=== PATIENT | male | born 2000 | race Caucasian/White ===

== ENCOUNTER 2024-06-19 18:36 | Emergency (ER) | payer OTHER, SELFPAY ==
[2024-06-19] VITALS (11 sets, daily range): BP systolic 109–140; BP diastolic 65–93; PULSE 68–111; RESP 14–19; TEMP 36.3; O2SAT 96–99; BMI 25.0
--- NOTE | 2024-06-19 18:59 | EKG_ITS ---
[address] [address] Test Date: 2024-06-19 Pat Name: Harish Gloria Department: [facility] Room: Gender: Male Trim Operator: SOHAM : 2000 Requested By: Order Number: [id number] Reading MD: Nathanael Rose MD Measurements Intervals Baker Rate: 68 P: 27 SD: 138 QRS: 66 QRSD: 112 T: 57 QT: 402 QTc: 427 Interpretive Statements Normal sinus rhythm Incomplete right bundle branch block NO PRIOR TRACING Electronically Signed On 06-20-2024 6:42:40 PDT by Nathanael Rose MD
--- NOTE | 2024-06-19 18:59 | DI.RAD.S_ITS ---
PROCEDURE: XR CHEST 1V INDICATIONS: Shortness of breath TECHNIQUE: One view of the chest was acquired. COMPARISON: None. FINDINGS: Surgical changes and devices: None. Lungs and pleura: Lungs are clear. Mildly low lung volumes bilaterally. No pleural effusions or pneumothorax. Mediastinum: Mediastinal contours appear normal. Heart size is normal. Bones and chest wall: No suspicious bony lesions. Overlying soft tissues appear unremarkable. IMPRESSION: No acute cardiopulmonary abnormality is seen. Approved by: Alexandr Ambrosio M.D. on 06/19/2024 at 19:37
[2024-06-19 19:16] LABS: Add Manual Diff / Slide Review NO; Basophils Absolute Auto 100 /uL (0-100); Basophils Percent Auto 1.5 % (0-2); Eosinophils Absolute Auto 200 /uL (0-450); Eosinophils Percent Auto 2.1 % (2-4); Hematocrit 31.8 % (41-53); Hemoglobin 10.9 g/dL (13.5-17.5); Lymphocytes Absolute Auto 2200 /uL (1100-4500); Mean Corpuscular HGB Conc 34.2 % (30-36); Mean Corpuscular Hemoglobin 30.6 PG (26-34); Mean Corpuscular Volume 89.4 fL (80-100); Monocytes Absolute Auto 800 /uL (0-900); Monocytes Percent Auto 8.6 % (3-14); Neutrophils Absolute Auto 5900 /uL (1500-7000); Neutrophils Percent Auto 63.8 % (50-75); Platelet Count 544 X10^3/uL (150-400); Red Blood Cell Count 3.55 X10^6/uL (4.5-5.9); Red Cell Distribution Width 15.2 % (11.6-14.8); White Blood Cell Count 9.2 X10^3/uL (4.5-11.0)
[2024-06-19 19:22] LABS: INR 1.2 (0.9-1.3); Prothrombin Time 13.1 SECONDS (9.4-12.5)
[2024-06-19 19:27] LABS: Lactate (Lactic Acid) 1.2 mmol/L (0.7-2.1)
[2024-06-19 19:29] LABS: Alanine Aminotransferase 59 IU/L (<50); Albumin 4.3 g/dL (3.5-5.0); Albumin Globulin Ratio 1.2 (1.0-2.8); Alkaline Phosphatase 71 U/L (38-126); Aspartate Aminotransferase 76 IU/L (17-59); BUN Creatinine Ratio 14.9 (6-22); Bilirubin Total 0.5 mg/dL (0.2-1.3); Blood Urea Nitrogen 15 mg/dL (9-20); Calcium 9.6 mg/dL (8.4-10.2); Carbon Dioxide 24 mmol/L (22-32); Chloride 104 mmol/L (98-107); Estimated Glomerular Filt Rate > 60 mL/min (>60); Globulin 3.6 g/dL (1.7-4.1); Glucose 166 mg/dL (70-100); HEMOLYSIS < 15 (0-50); Sodium 139 mmol/L (137-145); Total Protein 7.9 g/dL (6.3-8.2)
[2024-06-19 19:39] LABS: NT-proBNP (BNP-Adult 18+) 76 pg/mL (<125); Troponin I < 0.012 ng/mL (0.01-0.034)
--- NOTE | 2024-06-19 21:35 | ED_ITS ---
HPI - Recheck/Abnormal Lab/Rx General Chief Complaint: Recheck/Abnormal Lab/Rx Stated Complaint: sent by [facility], chest px when breathes Time Seen by Provider: 06/19/24 19:03 History of Present Illness HPI narrative: 23-year-old male with known past medical history of alcoholic pancreatitis PE on Lovenox presenting to the emergency department due to patient being sent in by his primary care doctor. He states that he was recently seen discharge from [facility] was in the ICU for acute pancreatitis complicated with DVT he is currently on Lovenox, he did follow up and his primary care doctor wanted him to be evaluated given the fact that patient stating that he is still having some mild right-sided chest pain. Patient states he has not having any worsening symptoms states that he was discharged with this pain, however he states that he was told to come here because it was his flight doctor,/ [place] doctor. 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 He is just requesting medication here for this. Patient compliant with all of his other medications. Related Data Allergies Allergy/AdvReac Type Severity Reaction Status Date / Time amoxicillin Allergy Verified 06/19/24 18:50 azithromycin Allergy Verified 06/19/24 18:50 clindamycin Allergy Verified 06/19/24 18:50 Penicillins Allergy Verified 06/19/24 18:50 Review of Systems Review of Systems Narrative: General: Denies fever, chills, weight loss HEENT: Denies headache, eye drainage, eye irritation, head trauma, sore throat, voice change Cardiovascular: Positive chest pain, denies palpitations, tachycardia Respiratory: Denies any shortness of breath, cough, wheeze, stridor GI/: Denies any abdominal pain, nausea, vomiting, diarrhea, bright red blood per rectum, melanotic stools, urinary frequency, urinary retention, dysuria, hematuria MSK: Denies any joint pain, muscle pains, swelling Skin: Denies any rashes, lesions, discoloration Neuro: Denies any headache, lightheadedness, dizziness, fainting, weakness Psych: Denies SI/HI Patient History Social History Smoking Status: Unknown if ever smoked Smoking Status: Unknown if ever smoked Exam Narrative Exam Narrative: General: Cooperative, comfortable, well-developed, not in acute distress HEENT: Normocephalic, atraumatic, PERRLA, normal sclera, eyelids normal, Neck: Active full range of motion, atraumatic Chest: Normal to inspection, negative crepitus, no overlying erythema ecchymosis Respiratory: Normal respiratory effort, not in acute respiratory distress, clear to auscultation bilaterally negative cough, wheeze, tachypnea, rhonchi, rales Cardiology: Regular rate rhythm negative gallop, murmur, rubs GI/: Normal to inspection, soft, nonrigid, no tenderness to palpation, exam deferred MSK: Full range of active range of motion of all 4 extremities, atraumatic Skin: No rashes lesions noted Neuro: Alert awake oriented x3, moves all 4 extremities spontaneously, cranial nerves intact, able to answer all questions appropriately follows commands appropriately Psych: Cooperative, negative suicidal or homicidal ideations Initial Vital Signs Initial Vital Signs: Vital Signs Temperature 97.4 F L 06/19/24 18:50 Pulse Rate 111 H 06/19/24 18:50 Respiratory Rate 18 06/19/24 18:50 Blood Pressure 124/65 06/19/24 18:50 Pulse Oximetry 96 06/19/24 18:50 Oxygen Delivery Method Room Air 06/19/24 18:50 Course Orders Ordered: Discontinued Medications Oxycodone/Acetaminophen (Oxycodone/Apap 5/325 Prepack) 1 bottle MISC DIRECTED ONE Stop: 06/19/24 21:40 Last Admin: 06/19/24 21:44 Dose: 1 bottle Documented By: TARUN Vital Signs Vital signs: Vital Signs - 8 hr 06/19/24 21:00 06/19/24 21:30 06/19/24 21:47 Pulse Rate 68 71 Respiratory Rate 19 18 Blood Pressure 140/92 H Pulse Oximetry 98 98 06/19/24 21:47 06/19/24 22:00 06/19/24 22:00 Pulse Rate 76 76 Respiratory Rate 18 18 Blood Pressure 137/85 Pulse Oximetry 99 98 MDM - Recheck/Abnormal Lab/Rx Differential Diagnosis Differential diagnosis: Likely other (Pneumonia, electrolyte abnormality, chest pain, ACS) Lab Data 06/19/24 19:08 06/19/24 19:08 Labs: Lab Results 06/19/24 Range/Units 19:08 WBC 9.2 (4.5-11.0) X10^3/uL RBC 3.55 L (4.5-5.9) X10^6/uL Hgb 10.9 L (13.5-17.5) g/dL Hct 31.8 L (41-53) % MCV 89.4 (80-100) fL MCH 30.6 (26-34) PG MCHC 34.2 (30-36) % RDW 15.2 H (11.6-14.8) % Plt Count 544 H (150-400) X10^3/uL Neut % (Auto) 63.8 (50-75) % Lymph % (Auto) 24.0 L (25-40) % [place] % (Auto) 8.6 (3-14) % Eos % (Auto) 2.1 (2-4) % Baso % (Auto) 1.5 (0-2) % Neut # (Auto) 5900 (8322-5687) /uL Lymph # (Auto) 2200 (0160-2255) /uL [place] # (Auto) 800 (0-900) /uL Eos # (Auto) 200 (0-450) /uL Baso # (Auto) 100 (0-100) /uL PT 13.1 H (9.4-12.5) SECONDS INR 1.2 (0.9-1.3) Sodium 139 (137-145) mmol/L Potassium 4.0 (3.4-5.1) mmol/L Chloride 104 (98-107) mmol/L Carbon Dioxide 24 (22-32) mmol/L BUN 15 (9-20) mg/dL Creatinine 1.01 (0.66-1.25) mg/dL Estimated GFR > 60 (>60) mL/min BUN/Creatinine Ratio 14.9 (6-22) Glucose 166 H (70-100) mg/dL Lactate 1.2 (0.7-2.1) mmol/L Calcium 9.6 (8.4-10.2) mg/dL Total Bilirubin 0.5 (0.2-1.3) mg/dL AST 76 H (17-59) IU/L ALT 59 H (<50) IU/L Alkaline Phosphatase 71 (38-126) U/L Troponin I < 0.012 (0.01-0.034) ng/mL NT-Pro-B Natriuret Pep 76 (<125) pg/mL Total Protein 7.9 (6.3-8.2) g/dL Albumin 4.3 (3.5-5.0) g/dL Globulin 3.6 (1.7-4.1) g/dL Albumin/Globulin Ratio 1.2 (1.0-2.8) Imaging Data Chest x-ray: Radiologist's Impression: [address] [address] XRay Report Signed Patient: Harish Gloria MR#: [id number] : 2000 Acct:[id number] Age/Sex: 23 / M Date of Service: 06/19/24 Loc: ED Accession Number: [id number] Procedure: XR chest 1V Ordering Provider: Kumar Childress D.O. PROCEDURE: XR CHEST 1V INDICATIONS: Shortness of breath TECHNIQUE: One view of the chest was acquired. COMPARISON: None. FINDINGS: Surgical changes and devices: None. Lungs and pleura: Lungs are clear. Mildly low lung volumes bilaterally. No pleural effusions or pneumothorax. Mediastinum: Mediastinal contours appear normal. Heart size is normal. Bones and chest wall: No suspicious bony lesions. Overlying soft tissues appear unremarkable. IMPRESSION: No acute cardiopulmonary abnormality is seen. ECG Data Interpretation: EKG interpreted ED physician sinus 68 beats per minute QTC [address] changes no STEMI MDM Narrative Medical decision making narrative: Patient is a 23-year-old male with a past medical history of alcoholic pancreatitis that was complicated by an extended admission and PE at outside hospital, he states that he was discharged a few days ago, was discharged on Lovenox as well as oxycodone for his chest pain secondary to his pulmonary embolism. He states that [place] was instructed to come into the ED for further evaluation treatment. Patient states that the pain that he experiences exactly the same pain no better no worse than when he was discharged with a known PE has been compliant with his Lovenox, he is not having any new symptoms, he states he is only here because he was instructed to do so by his flight doctor. He states he did not get his pain medication yet due to the fact that he is not gone to the pharmacy. Patient with EKG nonischemic in nature troponin negative chest x-ray without any acute cardiopulmonary abnormalities, lab work unremarkable, patient with known PE on Lovenox without increasing chest pain need for supplemental oxygen therefore no indication to repeat CTA of the chest. Patient will be sent home with symptomatic relief instructed to follow up with his primary care doctor, patient has heart score of 1. Discharge Plan Departure Patient Disposition: Home Clinical Impression: Chest pain Activity Restrictions/Additional Instructions: Please follow up with your primary care doctor Please read the discharge instructions sheet carefully and bring all papers to all doctor follow-up visits, as it may contain information that your doctor may want to see. Disease processes change and evolve, if your symptoms worsen or if you develop any new symptoms that are concerning to you please return for evaluation. Your evaluation today does not show any evidence of any life- threatening/serious illnesses requiring admission to the hospital or surgery. Please follow-up with your doctor for re-evaluation in approximately 1 day. Seek immediate medical attention for any worrisome symptoms. *If you do not have a primary care provider please contact the [facility] Resource line at [phone]. They will ask some questions about your medical history and help get you set up with a doctor in the community. Referrals: ProviderDontrell [Primary Care Provider] - Stand Alone Forms: Patient Portal/API/Survey
[2024-06-19] MEDS: OXYCODONE/APAP 5/325 PREPACK 1 BOTTLE MISC (21:44)
== END 2024-06-19 22:48 | disposition home or self-care (01) ==
PROVIDERS: Emergency Provider Student in an Organized Health Care Education/Training Program
DX: R07.9 Chest pain, unspecified (principal); I26.99 Other pulmonary embolism without acute cor pulmonale; Z79.01 Long term (current) use of anticoagulants
CPT/HCPCS: 36415; 71045; 80053; 83605; 83880; 84484; 85025; 85610; 93005; 99283; 99284

== ENCOUNTER → 2024-07-24 13:47 | Outpatient (CLI) | payer OTHER, SELFPAY ==
--- NOTE | 2024-07-24 13:49 | DI.CT.S_ITS ---
PROCEDURE: CT ABDOMEN PELVIS W CON INDICATIONS: HX OF NECROTIZING PANCREATITIS TECHNIQUE: After the administration of intravenous contrast, axial sections acquired from the lung bases to the pubic symphysis. Coronal and sagittal reformats were performed. For radiation dose reduction, the following was used: automated exposure control, adjustment of mA and/or kV according to patient size. COMPARISON: None. FINDINGS: Image quality: Diagnostic. Lower Chest: No significant findings. ABDOMEN: Liver: No solid mass. There are geographic areas of fatty infiltration. No suspicious intrahepatic mass lesion. Gallbladder: No radiopaque gallstones or wall thickening. Biliary ducts: No biliary dilation. Pancreas: The pancreas is abnormal in appearance. Relatively homogeneous enhancement of the pancreatic parenchyma. The pancreatic body and tail are not well visualized which may be related to sequela of necrotizing pancreatitis. There is a heterogeneous, thick rimmed enhancing fluid collection at the expected location of the pancreatic body and tail with internal debris and air measuring approximately 4.2 x 5.7 cm in axial cross-sectional dimension and approximately 5.9 cm in craniocaudal dimension (41/series 4). There is communication between this fluid collection and the greater curvature of the gastric body with a stent device/cystgastrostomy between the 2 structures. (43/series 4). This fluid collection and the greater wall of the stomach appears to be contiguous. No intervening fat plane visualized. Findings are likely related to walled off necrosis. Spleen: Splenomegaly. Spleen measures approximately 14 cm in maximum dimension. Adrenal Glands: No adrenal nodules. Kidneys and Ureters: No hydronephrosis. No solid mass. No complex renal cystic lesion which requires follow up. Stomach and Bowel: Normal colonic caliber, without significant wall thickening. No evidence for small bowel obstruction or associated inflammatory changes. Normal appendix. Peritoneum: No abnormal intraperitoneal fluid. No free air. There is diffuse mesenteric stranding near the level of the pancreas extending to the distal gastric antrum and pylorus, medial aspect of the spleen, and proximal small bowel. This is likely related to resolving necrotizing pancreatitis as reported in patient history. Ventral Wall: There is a fat-containing umbilical hernia without acute inflammation. Abdominal Nodes: No retroperitoneal or mesenteric adenopathy by size criteria. Vessels: Aorta and inferior vena cava are normal in size. PELVIS: Pelvic Organs: Unremarkable. Bladder: No bladder wall thickening, accounting for underdistention. Pelvic Nodes: No enlarged lymph nodes. Miscellaneous: No inguinal hernias are seen. Bones: No aggressive osseous abnormality. Visualized osseous structures appear intact without acute fracture or focal destructive lesion. No acute compression fractures of the imaged spine. IMPRESSION: Findings compatible with sequela of necrotizing pancreatitis with a 4.2 x 5.7 x 5.9 cm intervening thick rimmed enhancing collection noted between the pancreas and greater curvature of the stomach. There is a stent device/cystgastrotomy maintaining communication between the lumen of the stomach and this fluid collection consistent with walled off necrosis. There is persistent peripancreatic stranding which may represent resolving pancreatitis. Other chronic findings as above. Approved by: Harish Torres M.D. on 07/28/2024 at 6:45
== END ==
PROVIDERS: Referring Provider Student in an Organized Health Care Education/Training Program; Visit Provider Student in an Organized Health Care Education/Training Program
DX: K85.81 Other acute pancreatitis with uninfected necrosis (principal); K42.9 Umbilical hernia without obstruction or gangrene; R16.1 Splenomegaly, not elsewhere classified
CPT/HCPCS: 74177; Q9967

== ENCOUNTER → 2024-07-30 11:22 | Outpatient (CLI) | payer OTHER, SELFPAY ==
--- NOTE | 2024-07-30 11:23 | DI.CT.S_ITS ---
PROCEDURE: CT ABDOMEN PELVIS W CON INDICATIONS: RECENT NECROTIZING PANCREATITIS TECHNIQUE: After the administration of intravenous contrast, axial sections acquired from the lung bases to the pubic symphysis. Coronal and sagittal reformats were performed. For radiation dose reduction, the following was used: automated exposure control, adjustment of mA and/or kV according to patient size. COMPARISON: [facility], CT, CT ABDOMEN PELVIS W CON, 07/24/2024, 14:02. FINDINGS: Image quality: Diagnostic. Peritoneum: No pneumoperitoneum or ascites. Bones: No acute osseous abnormality. Lower Chest: No acute abnormality. Liver: Normal in size and contour. Hepatic steatosis with focal fatty sparing around the gallbladder fossa (3/41). Gallbladder: No stones or pericholecystic fluid. Biliary tree: No intrahepatic or extrahepatic biliary ductal dilatation. Pancreas: Non enhancement of the pancreatic body and tail with preserved enhancement of the head/neck. No significant change in size of a 2.6 x 4.5 x 4.8 cm (previously 2.0 x 5.9 x 4.7 cm) fluid collection with internal gas communicating between the lesser curvature of the stomach and pancreatic body (2/41; 3/49). Unchanged position of a pancreaticogastric stent (3/50). Spleen: Splenomegaly up to 14.9 cm in the AP dimension (2/34). Kidneys: No hydronephrosis or obstructive urolithiasis. Adrenals: No adrenal nodularity. Bladder: Normal in size and wall thickness. : No acute abnormality. Stomach: Diffuse wall thickening along the lesser curvature of the gastric body and pylorus, likely reactive to the pancreatic pathology Bowel: Normal in diameter without any bowel obstruction. Appendix within normal limits (2/102). Oral contrast within the stomach and mid-distal small bowel. Lymph Nodes: No retroperitoneal, mesenteric, or inguinal lymphadenopathy. Vascular: No abdominal aortic aneurysm. The visualized arterial vasculature is patent. Portosystemic collaterals at the splenic hilum with incomplete visualization of the splenic vein (3/49), similar to 07/24/2024. Soft Tissues: No acute abnormality. IMPRESSION: 1. Re-identified sequelae of necrotizing pancreatitis with associated 4.8 cm acute necrotic collection, without significant interval change. 2. 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 Attention on follow-up imaging recommended. 3. Likely reactive gastritis. 4. Hepatic steatosis. 5. Splenomegaly. Dictated by: Yfn Zamora M.D. on 07/30/2024 at 16:56 Approved by: Yfn Zamora M.D. on 07/30/2024 at 17:11
== END ==
PROVIDERS: Referring Provider Student in an Organized Health Care Education/Training Program; Visit Provider Student in an Organized Health Care Education/Training Program
DX: K85.81 Other acute pancreatitis with uninfected necrosis (principal); K76.0 Fatty (change of) liver, not elsewhere classified; R16.1 Splenomegaly, not elsewhere classified
CPT/HCPCS: 74177; Q9967